=== PATIENT | male | born 1995 | race Caucasian/White ===

== ENCOUNTER 2016-11-28 15:44 | Emergency (ER) | payer BC, OTHER ==
[2016-11-28 15:48] VITALS: Ht 182.9 cm
[2016-11-28 16:00] VITALS: O2SAT 96
[2016-11-28] MEDS ORDERED: ACETAMINOPHEN 500 MG TAB PO STA (16:35)
[2016-11-28 16:37] LABS: BASO % 0.1 %; BASO ABS # 0.02 K/uL (0-0.2); COMPLETE YES; EOS % 0.1 %; HEMATOCRIT 48.2 % (42-52); IG% 1.5 %; LYMPH % 6.9 %; LYMPH ABS # 1.55 K/uL (1.2-3.4); MEAN CELL VOLUME 85.8 fL (80-100); MEAN CORPUSCULAR HGB CONC 36.1 g/dl (32-36); MEAN PLATELET VOLUME 9.9 fL (7.4-10.4); MONO % 5.1 %; NEUT % 86.3 %; PLATELET COUNT 260 K/uL (130-400); RED BLOOD COUNT 5.62 M/uL (4.7-6.1); WHITE BLOOD COUNT 22.35 K/uL (4.8-10.8)
--- NOTE | 2016-11-28 16:38 | DIAGNOSTIC IMAGING REPORT ---
CHEST ONE VIEW PORTABLE HISTORY: seizure COMPARISON: Chest 02/23/2016. FINDINGS: The lungs are clear. No pleural effusions. No pneumothorax. The heart is normal in size. The heart and aortic arch are along the right side of the chest. This remains unchanged. IMPRESSION: 1. No change compared to the prior study. No acute process. 2. 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 Electronically signed by: Kyle Tom M.D. 11/28/2016 4:37 PM Dictated Date/Time: 11/28/2016 4:35 PM
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
[2016-11-28 16:48] LABS: ALT/SGPT 51 U/L (12-78); BLOOD UREA NITROGEN 14 mg/dl (7-18); BUN/CREATININE RATIO 10.6 (10-20); CALCIUM 9.3 mg/dl (8.5-10.1); CARBON DIOXIDE 24 mmol/L (21-32); CHLORIDE 102 mmol/L (98-107); GLUCOSE 150 mg/dl (70-99); MAGNESIUM 2.9 mg/dl (1.8-2.4); POTASSIUM 3.6 mmol/L (3.5-5.1); SODIUM 136 mmol/L (136-145)
[2016-11-28 16:51] LABS: ALB/GLOB RATIO 1.5 (0.9-2); ALKALINE PHOSPHATASE 106 U/L (45-117); AST/SGOT 40 U/L (15-37)
[2016-11-28] MEDS ORDERED: LAMO150T32 PO (16:54)
[2016-11-28] MEDS ORDERED: LEVE500T13 PO (16:54)
[2016-11-28] MEDS ORDERED: LEVETIRACETAM 500 MG TAB PO STA (17:00)
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
[2016-11-28 18:03] LABS: BENZODIAZEPINE, URINE NEG (NEG); COCAINE,URINE NEG (NEG); PHENCYCLIDINE, URINE NEG (NEG)
[2016-11-28 18:10] VITALS: BP 144/88; PULSE 81; O2SAT 99
== END 2016-11-28 18:12 | disposition home or self-care (01) ==
LOC: C.EDB 15:48 → C.EDA 18:12
DX: R56.9 Unspecified convulsions (principal); S09.90XA Unspecified injury of head, initial encounter; T14.8 Other injury of unspecified body region; W19.XXXA Unspecified fall, initial encounter; Y92.481 Parking lot as the place of occurrence of the external cause; Q89.3 Situs inversus; Z87.820 Personal history of traumatic brain injury; Z79.899 Other long term (current) drug therapy

== ENCOUNTER → 2017-05-01 | Outpatient (CLI) | payer BC, OTHER ==
[~2017-05-01] MED LIST: LAMO150T PO; LEVE500T13 PO
[2017-05-01 18:33] LABS: BASO % 0.3 %; BASO ABS # 0.04 K/uL (0-0.2); EOS % 0.8 %; HEMATOCRIT 47.4 % (42-52); HEMOGLOBIN 16.8 g/dL (14.0-18.0); IG# 0.03 K/uL (0.00-0.02); LYMPH ABS # 2.15 K/uL (1.2-3.4); MEAN CELL VOLUME 87.8 fL (80-100); MEAN CORPUSCULAR HEMOGLOBIN 31.1 pg (25-34); MEAN CORPUSCULAR HGB CONC 35.4 g/dl (32-36); MEAN PLATELET VOLUME 9.9 fL (7.4-10.4); MONO % 8.8 %; MONO ABS # 1.05 K/uL (0.11-0.59); NEUT % 71.8 %; NEUT ABS # 8.56 K/uL (1.4-6.5); PLATELET COUNT 263 K/uL (130-400); RED CELL DISTRIBUTION WIDTH CV 11.9 % (11.5-14.5); RED CELL DISTRIBUTION WIDTH SD 37.8 fL (36.4-46.3); WHITE BLOOD COUNT 11.93 K/uL (4.8-10.8)
[2017-05-01 18:52] LABS: BLOOD UREA NITROGEN 21 mg/dl (7-18); CALCIUM 9.3 mg/dl (8.5-10.1); CARBON DIOXIDE 30 mmol/L (21-32); CREATININE 1.13 mg/dl (0.60-1.40); GLUCOSE 95 mg/dl (70-99); SODIUM 138 mmol/L (136-145)
[2017-05-06 08:35] LABS: KEPPRA (LEVETIRACETAM) *15142X 4.7 mcg/mL; LAMICTAL (LAMOTRIGINE)**22060 5.2 mcg/mL (4.0-18.0)
== END | disposition home or self-care (01) ==
LOC: C.LAB 18:02
PROVIDERS: ATTEND Psychiatry & Neurology Neurology
DX: G40.319 Generalized idiopathic epilepsy and epileptic syndromes, intractable, without status epilepticus (principal)

== ENCOUNTER 2017-05-22 16:56 | Emergency (ER) | payer OTHER ==
[~2017-05-22] VITALS: Ht 185.4 cm; Wt 89.3 kg
[2017-05-22 17:03] VITALS: TEMP 36.3; Ht 185.4 cm; Wt 89.3 kg
[2017-05-22] MEDS ORDERED: METOCLOPRAMIDE HCL INJ 5 MG/ML 2 ML VIAL IV STA (17:17)
[2017-05-22] MEDS ORDERED: SODIUM CHLORIDE 0.9% 1000ML 2,000 ML IV STA ×2 (17:17)
[2017-05-22] MEDS ORDERED: ONDANSETRON INJ 2 MG/ML 2 ML VIAL IV STA (17:49)
[2017-05-22] MEDS ORDERED: ACETAMINOPHEN IV 100 ML IV STA (17:49)
[2017-05-22 17:50] LABS: BASO % 0.2 %; BASO ABS # 0.03 K/uL (0-0.2); EOS % 0.4 %; EOS ABS # 0.05 K/uL (0-0.5); HEMATOCRIT 44.5 % (42-52); HEMOGLOBIN 16.1 g/dL (14.0-18.0); IG# 0.07 K/uL (0.00-0.02); LYMPH % 13.3 %; LYMPH ABS # 1.66 K/uL (1.2-3.4); MEAN CELL VOLUME 84.6 fL (80-100); MEAN CORPUSCULAR HEMOGLOBIN 30.6 pg (25-34); MEAN CORPUSCULAR HGB CONC 36.2 g/dl (32-36); MEAN PLATELET VOLUME 9.6 fL (7.4-10.4); MONO % 6.1 %; MONO ABS # 0.76 K/uL (0.11-0.59); NEUT % 79.4 %; PLATELET COUNT 275 K/uL (130-400); RED CELL DISTRIBUTION WIDTH CV 11.8 % (11.5-14.5); RED CELL DISTRIBUTION WIDTH SD 36.1 fL (36.4-46.3); WHITE BLOOD COUNT 12.47 K/uL (4.8-10.8)
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
[2017-05-22 18:08] LABS: CALCIUM 9.3 mg/dl (8.5-10.1); CREATININE 1.18 mg/dl (0.60-1.40); POTASSIUM 3.9 mmol/L (3.5-5.1)
[2017-05-22] MEDS ORDERED: LEVETIRACETAM 500 MG TAB PO STA (19:50)
[2017-05-22] MEDS ORDERED: DEXAMETHASONE **PF** INJ 10 MG/ML VIAL IV ONE (20:15)
[2017-05-22] MEDS ORDERED: GADAVIST IV PRN (21:00)
--- NOTE | 2017-05-22 21:21 | DIAGNOSTIC IMAGING REPORT ---
BRAIN COMBO FOR SEIZURE HISTORY: 21 years-old Male refractory seizures acute seizure with fall and headache. COMPARISON: CT head 11/28/2016 and 02/23/2016. TECHNIQUE: Multiplanar multisequence MRI of the brain was obtained both with and without the use of 9 mL Gadavist utilizing institutional seizure protocol. FINDINGS: The large [id number] senior painter localizer images demonstrate no gross abnormality. There is no restricted diffusion to suggest acute or subacute infarction. The midline structures including the corpus callosum, brainstem, optic chiasm, and fibula, pituitary and pineal glands are unremarkable as seen on the sagittal T1 series. No cerebellar tonsillar herniation. Imaged cervical spine is unremarkable. Blooming artifact is noted adjacent to the right frontal calvarium and frontal lobe with linear area of increased T2/FLAIR signal seen within the right frontal lobe nicely seen on image 12 of series 7 and images 19 and 20 of series 5 with mild encephalomalacia within this region extending towards the right frontal horn. No focal mass lesions are identified. No additional focal signal abnormalities of the brain parenchyma identified. There is no intracranial hemorrhage, midline shift, abnormal extra-axial collections or hydrocephalus. No evidence of cortical dysplasia. The bilateral mesial temporal lobes appear to be within normal limits and are symmetric. There is no abnormal intra-axial or extra-axial enhancement identified. The major flow voids at the level of the skull base appear patent. The mastoid air cells are clear. Mild to moderate mucosal thickening of the inferior maxillary sinuses. Orbits are unremarkable. Partially imaged left suboccipital subcutaneous 1.9 x 1.0 cm lesion suggests a lymph node nicely seen on image 1 series 6. IMPRESSION: 1. Postsurgical changes of the right frontal calvarium with encephalomalacia and gliosis of the right frontal lobe near the vertex extending towards the frontal horn right lateral ventricle, possibly from prior ventriculostomy. Correlate with patient's surgical history. 2. No acute intracranial abnormality identified. No evidence of mesial temporal sclerosis. 3. No abnormal enhancement. 4. Mild to moderate maxillary sinus disease. The above report was generated using voice recognition software. It may contain grammatical, syntax or spelling errors. Electronically signed by: Balaji Enriquez M.D. 05/22/2017 9:20 PM Dictated Date/Time: 05/22/2017 9:09 PM
[2017-05-22 21:50] VITALS: BP 140/83; PULSE 78; O2SAT 98
== END 2017-05-22 22:04 | disposition home or self-care (01) ==
LOC: EDBD 16:56 → C.EDB 16:57
DX: G40.909 Epilepsy, unspecified, not intractable, without status epilepticus (principal); Z87.820 Personal history of traumatic brain injury; Z82.0 Family history of epilepsy and other diseases of the nervous system